=== PATIENT | female | born 1950 | race Caucasian/White ===

== ENCOUNTER 2016-11-01 17:45 | Emergency (ER) | payer OTHER ==
[~2016-11-01] VITALS: Ht 160 cm; Wt 86.2 kg
--- NOTE | ~2016-11-01 | EKG ---
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: VIVEK : 1950 Requested By: Lindy Berger Order Number: [id number] MD: Stan Arauz Measurements Intervals [place] Rate: 56 P: -12 MS: 189 QRS: -25 QRSD: 86 T: -13 QT: 457 QTc: 442 Interpretive Statements Sinus rhythm Abnormal R-wave progression, late transition Left ventricular hypertrophy Borderline T abnormalities, inferior leads No previous ECG available for comparison Electronically Signed On 11-02-2016 2:10:37 CDT by Stan Arauz [email or web address] <ELECTRONICALLY SIGNED> By: Stan Arauz MD 11/02/16 0210 D: 06/1804 04 Stan Arauz MD /[email or web address]
[2016-11-01 18:22] LABS: HEMATOCRIT 41.6 % (37.0-47.0); HEMOGLOBIN 14.5 gm/dL (12.0-15.0); MCH 31.1 pg (26.0-34.0); MCHC 34.9 g/dL (28.0-37.0); MCV 89.3 fL (80.0-100.0); PLATELET COUNT 218 thou/uL (150-400); RBC 4.66 mil/uL (4.20-5.00); RDW 12.9 % (10.5-14.5); WBC 7.7 thou/uL (4.0-11.0)
[2016-11-01 18:23] LABS: MANUAL DIFF YES
[2016-11-01 18:31] LABS: ANION GAP 6 mmol/L (7-16); BUN 16 mg/dL (7-18); CALCIUM 10.3 mg/dL (8.5-10.1); CHLORIDE 102 mmol/L (98-107); CO2 28 mmol/L (21-32); CREATININE 0.7 mg/dL (0.6-1.0); GLUCOSE 107 mg/dL (74-106); POTASSIUM 4.8 mmol/L (3.5-5.1); SODIUM 136 mmol/L (136-145)
[2016-11-01 18:39] LABS: TROPONIN-I < 0.04 ng/mL (<0.04-0.07)
[2016-11-01] MEDS ORDERED: COZAAR 25 MG TA25 M1 PO (18:49)
[2016-11-01 18:59] LABS: ABSOLUTE NEUTROPHILS 5.6 thou/uL (1.4-8.2); TOTAL CELL COUNT 100
[2016-11-01 19:00] LABS: ANISOCYTOSIS 1+; POLYCHROMASIA OCCASIONAL
[2016-11-01 19:26] VITALS: BP 204/82
== END 2016-11-01 18:49 | disposition home or self-care (01) ==
LOC: ER 17:45
PROVIDERS: Emergency Medicine
DX: I10 Essential (primary) hypertension (principal); F32.9 Major depressive disorder, single episode, unspecified; F41.9 Anxiety disorder, unspecified; F10.99 Alcohol use, unspecified with unspecified alcohol-induced disorder